=== PATIENT | female | born 1990 | race Caucasian/White ===

== ENCOUNTER 2018-10-31 10:02 | Emergency (ER) | payer BC ==
[2018-10-31 10:11] VITALS: BP 135/72
--- NOTE | 2018-10-31 10:22 | UC ---
Lower Extremity/Ankle HPI - HPI Summary HPI Summary: 28 yo female presents with RIGHT ankle/foot pain. She tells me that last night at work she stepped backwards and inverted her right foot/ankle. Did not have much discomfort at the time, but as the night progressed she had increasing pain and swelling. This morning is unable to weight bear. Her mother gave her a norco and ice last night for her discomfort and pt had great relief with this. - History of Current Complaint Chief Complaint: UCLowerExtremity Stated Complaint: ANKLE INJURY Time Seen by Provider: 10/31/18 10:22 Hx Obtained From: Patient Hx Last Menstrual Period: 10/27/18 Onset/Duration: Sudden Onset Severity Initially: Moderate Severity Currently: Moderate Pain Intensity: 7 Pain Scale Used: 0-10 Numeric Aggravating Factor(s): Standing, Ambulation Alleviating Factor(s): Rest, Elevation Able to Bear Weight: No - Allergies/Home Medications Allergies/Adverse Reactions: Allergies Allergy/AdvReac Type Severity Reaction Status Date / Time No Known Allergies Allergy Verified 10/31/18 10:11 Home Medications: Home Medications Norgestimate-Ethinyl Estradiol [[place] 28 Tablet] 1 tab PO DAILY 10/31/18 [ History Confirmed 10/31/18] PMH/Surg Hx/FS Hx/Imm Hx - Additional Past Medical History Additional PMH: None - Surgical History Surgical History: None - Family History Known Family History: Positive: Non-Contributory - Social History Occupation: Employed Full-time Lives: With Family Alcohol Use: Occasionally Alcohol Amount: 1x week Substance Use Type: None Smoking Status (MU): Never Smoked Tobacco Review of Systems All Other Systems Reviewed And Are Negative: No Constitutional: Positive: Negative Skin: Positive: Negative Respiratory: Positive: Negative Cardiovascular: Positive: Negative Neurovascular: Positive: Negative Musculoskeletal: Positive: Other: - Right ankle/foot pain Neurological: Positive: Negative Psychological: Positive: Negative Physical Exam - Summary Physical Exam Summary: GENERAL: NAD. WDWN. No pain distress. SKIN: No rashes, sores, lesions, or open wounds. CHEST: No accessory muscle use. Breathing comfortably and in no distress. CV: Pulses intact PT and DP. Cap refill <2seconds MSK: RIGHT ANKLE/FOOT: TTP overlying ATFL and navicular bone with moderate edema. Dorsiflexion and plantarflexion cause increased pain. No 5th MTP tenderness. Negative talar tilt. No increased laxity. NEURO: Alert. Sensations intact and symmetric B/L LEs PSYCH: Age appropriate behavior. Triage Information Reviewed: Yes Vital Signs: Initial Vital Signs Temp 98.7 F 10/31/18 10:08 Pulse 91 10/31/18 10:08 Resp 17 10/31/18 10:08 BP 135/72 10/31/18 10:08 Pulse Ox 99 10/31/18 10:08 Vital Signs Reviewed: Yes Diagnostics - Radiology Foot XR Radiology Interpretation Completed By: Radiologist Summary of Radiographic Findings: IMPRESSION: NO ACUTE OSSEOUS INJURY. IF SYMPTOMS PERSIST, RECOMMEND REPEAT IMAGING. Ankle XR Radiology Interpretation Completed By: Radiologist Summary of Radiographic Findings: IMPRESSION: NO ACUTE OSSEOUS INJURY. IF SYMPTOMS PERSIST, RECOMMEND REPEAT IMAGING. Lower Extremity Course/Dx - Course Course Of Treatment: XRs negative. Given pt's clinical exam, there is a suspicion for an occult fracture - perhaps in the navicular bone. I discussed this with pt and mother and advised pt to be non-weight bearing with crutches and to use a walking boot as she declined splinting with orthoglass today. Will have her RICE and f/u with Orthopedics next week for a recheck - Differential Dx/Diagnosis Provider Diagnosis: Right ankle pain Discharge ED - Sign-Out/Discharge Documenting (check all that apply): Patient Departure All imaging exams completed and their final reports reviewed: Yes - Discharge Plan Condition: Stable Disposition: HOME Prescriptions: HYDROcodone/ACETAMIN 5-325 MG* [[place] 5-325 TAB*] 1 tab PO BID PRN #6 tab MDD 2 PRN Reason: Pain - Severe Patient Education Materials: Ankle Sprain (ED), Foot Sprain (ED) Referrals: Irma Jennings NP [Primary Care Provider] - Víctor Leblanc MD [Medical Doctor] - 11/03/18 11:45 am Additional Instructions: If you develop a fever, shortness of breath, chest pain, new or worsening symptoms - please call your PCP or go to the ED immediately. Your X-Rays were normal today, but your exam is suspicious for a fracture. Use the walking boot and crutches as much as possible and try to be non-weight bearing. I have scheduled you an appointment with Dr. Leblanc's office on Friday 11/03 at 11 :45am for further evaluation - Billing Disposition and Condition Condition: STABLE Disposition: Home
== END 2018-10-31 11:30 | disposition home or self-care (01) ==
LOC: UCEAST 10:02
DX: M25.571 Pain in right ankle and joints of right foot (principal); X50.1XXA Overexertion from prolonged static or awkward postures, initial encounter; Y92.9 Unspecified place or not applicable
CPT/HCPCS: 99213; G0463